=== PATIENT | female | born 1985 | race Caucasian/White ===

== ENCOUNTER → 2024-03-21 | Outpatient (CLI) | payer OTHER ==
[~2024-03-21] MED LIST: ALBIPROI INH; ALBU90OI; AMOX500 PO; BIRTH CONTROL; CODACE30; DICY20; DOCU100 PO; ESCI10; FLUSAL2505; FLUSAL2505 IH; HYDACE5 PO; IBUP800; IBUP800 PO; KETO75 PO; OXYACE5T PO; PENVK500 PO; PRED20 PO; PROM25 PO; RXOXYACE PO; TRIAOI
== END ==
LOC: LAB 14:20 → LAB SHORT 14:20
DX: N84.1 Polyp of cervix uteri (principal)
CPT/HCPCS: 88305

== ENCOUNTER → 2024-10-24 | Outpatient (CLI) | payer OTHER ==
[2024-10-24 14:17] LABS: BASOPHILS ABSOLUTE AUTO 0.06 K/mm3 (0.00-0.23); BASOPHILS PERCENT AUTO 1 % (0-2); EOSINOPHILS ABSOLUTE AUTO 0.22 K/mm3 (0.00-0.68); EOSINOPHILS PERCENT AUTO 3 % (0-6); Hematocrit 39.2 % (33.0-51.0); Hemoglobin 13.1 g/dL (11.5-16.0); IMMATURE GRAN ABSOLUTE AUTO 0.03 K/mm3 (0.00-0.10); IMMATURE GRAN PERCENT AUTO 0 % (0-1); LYMPHOCYTES ABSOLUTE AUTO 2.33 K/mm3 (0.84-5.20); LYMPHOCYTES PERCENT AUTO 26 % (21-46); MONOCYTES ABSOLUTE AUTO 0.54 K/mm3 (0.16-1.47); MONOCYTES PERCENT AUTO 6 % (4-13); Mean Corpuscular HGB 29.4 pg (26.0-34.0); Mean Corpuscular HGB Conc 33.4 g/dL (31.5-36.5); Mean Corpuscular Volume 88 fL (80-100); Mean Platelet Volume 10.6 fL (9.1-12.4); NEUTROPHILS ABSOLUTE AUTO 5.71 K/mm3 (1.96-9.15); NEUTROPHILS PERCENT AUTO 64 % (41-73); Platelet Count 264 K/mm3 (150-400); RDW Coefficient Variation 13.3 % (11.7-14.2); RDW Standard Deviation 42.3 fL (35.1-46.3); Red Blood Cell Count 4.45 M/mm3 (3.80-5.20); White Blood Cell Count 8.89 K/mm3 (4.00-11.30)
[2024-10-24 14:29] LABS: Albumin, Blood 3.2 g/dL (3.4-5.0); Albumin/Globulin Ratio 0.8 (0.8-1.8); Bilirubin, Total 0.4 mg/dL (0.1-1.0); Bun/Creatinine Ratio 16.9 (12.0-20.0); Creatinine, Blood 0.65 mg/dL (0.40-1.00); Globulin, Blood 3.9 g/dL (2.2-4.0); Potassium, Blood 3.9 mmol/L (3.5-5.5); Total Protein, Blood 7.1 g/dL (6.4-8.2)
== END ==
LOC: LAB 14:13 → LAB SHORT 14:13
PROVIDERS: Chiropractor
DX: R10.32 Left lower quadrant pain (principal)
CPT/HCPCS: 80053; 83690; 85025

== ENCOUNTER → 2024-10-27 | Outpatient (CLI) | payer OTHER ==
[2024-10-28 18:59] LABS: Adenovirus F 40/41 Not Detected (NOT DETECT); Astrovirus Not Detected (NOT DETECT); Campylobacter Sp Not Detected (NOT DETECT); Cryptosporidium Not Detected (NOT DETECT); Cyclospora Cayetanensis Not Detected (NOT DETECT); E. Coli O157 Not Detected (NOT DETECT); Entamoeba Histolytica Not Detected (NOT DETECT); Enteroaggregative E. coli-EAEC Not Detected (NOT DETECT); Enteropathogenic E. coli-EPEC Not Detected (NOT DETECT); Enterotoxigenic E. coli-ETEC Not Detected (NOT DETECT); Giardia Lamblia Not Detected (NOT DETECT); Norovirus GI/GII Not Detected (NOT DETECT); Plesiomonas Shigelloides Not Detected (NOT DETECT); Rotavirus A Not Detected (NOT DETECT); Salmonella Sp Not Detected (NOT DETECT); Sapovirus Not Detected (NOT DETECT); Shiga Toxin-prod E. coli-STEC Not Detected (NOT DETECT); Shigella/Enteroin E. coli-EIEC Not Detected (NOT DETECT); Vibrio Cholerae Not Detected (NOT DETECT); Vibrio Sp Not Detected (NOT DETECT); Yersinia Enterocolitica Not Detected (NOT DETECT)
== END | disposition home or self-care (01) ==
LOC: LAB 21:00 → LAB SHORT 21:00
PROVIDERS: Chiropractor
DX: R19.7 Diarrhea, unspecified (principal)
CPT/HCPCS: 87507

== ENCOUNTER → 2025-05-22 | Outpatient (CLI) | payer OTHER ==
[~2025-05-22] MED LIST changes: +Adipex-P37.5 M1 PO; +CELEBREX200 MG PO; +CEPH500 PO; +GABAPENTIN600 MG PO; +MONDOXYNE NL100 MG PO; +PROAIR RESPICL90 MCG INH; +TOPI50 PO
== END ==
LOC: LAB 19:01 → LAB SHORT 19:01
DX: T14.8XXA Other injury of unspecified body region, initial encounter (principal); L08.9 Local infection of the skin and subcutaneous tissue, unspecified
CPT/HCPCS: 87070; 87075; 87205

== ENCOUNTER 2025-05-27 21:58 | Inpatient (IN) | payer OTHER ==
[~2025-05-27] VITALS: Ht 170.2 cm; Wt 136.1 kg
[~2025-05-27 21:58] MED LIST changes: -Adipex-P37.5 M1 PO; -CELEBREX200 MG PO; -CEPH500 PO; -GABAPENTIN600 MG PO; -MONDOXYNE NL100 MG PO; -PROAIR RESPICL90 MCG INH; -TOPI50 PO
[2025-05-27] MEDS ORDERED: MONDOXYNE NL100 MG PO (22:07)
[2025-05-27] MEDS ORDERED: CEPH500 PO (22:07)
[2025-05-27] MEDS ORDERED: GABAPENTIN600 MG PO (22:08)
[2025-05-27] MEDS ORDERED: CELEBREX200 MG PO (22:08)
[2025-05-27] MEDS ORDERED: Adipex-P37.5 M1 PO (22:08)
[2025-05-27] MEDS ORDERED: ALBU90OI INH (22:09)
[2025-05-27] MEDS ORDERED: HYDROmorphone HCl/Pf 1MG SYR IV ONE (22:10)
[2025-05-27] MEDS ORDERED: Ondansetron HCl 2 MG / ML 2ML Vial IV ONE (22:20)
[2025-05-27 22:57] LABS: BASOPHILS ABSOLUTE AUTO 0.06 K/mm3 (0.00-0.23); BASOPHILS PERCENT AUTO 0 % (0-2); EOSINOPHILS ABSOLUTE AUTO 0.16 K/mm3 (0.00-0.68); EOSINOPHILS PERCENT AUTO 1 % (0-6); Hematocrit 38.8 % (33.0-51.0); Hemoglobin 13.5 g/dL (11.5-16.0); IMMATURE GRAN ABSOLUTE AUTO 0.08 K/mm3 (0.00-0.10); IMMATURE GRAN PERCENT AUTO 1 % (0-1); LYMPHOCYTES ABSOLUTE AUTO 2.50 K/mm3 (0.84-5.20); LYMPHOCYTES PERCENT AUTO 19 % (21-46); MONOCYTES ABSOLUTE AUTO 0.77 K/mm3 (0.16-1.47); MONOCYTES PERCENT AUTO 6 % (4-13); Mean Corpuscular HGB Conc 34.8 g/dL (31.5-36.5); Mean Corpuscular Volume 88 fL (80-100); NEUTROPHILS ABSOLUTE AUTO 9.83 K/mm3 (1.96-9.15); NEUTROPHILS PERCENT AUTO 73 % (41-73); NRBC ABSOLUTE 0.00 K/mm3 (0.00-0.02); NRBC Auto 0.0 /100 WBC (0.0-0.2); Platelet Count 222 K/mm3 (150-400); RDW Coefficient Variation 13.5 % (11.7-14.2); RDW Standard Deviation 43.7 fL (35.1-46.3)
[2025-05-27] MEDS ORDERED: CefTRIAXone Sodium 2,000 MG in NS 100 ML IV ONE (23:15)
[2025-05-27] MEDS ORDERED: NS 1,000 ML IV SCH (23:20)
[2025-05-28 00:03] LABS: Alanine Aminotransfer (ALT/SGP 23.0 U/L (12-78); Albumin, Blood 3.4 g/dL (3.4-5.0); Albumin/Globulin Ratio 0.9 (0.8-1.8); Anion Gap 11.0 mmol/L (3-11); Aspartate Aminotrans (AST/SGOT 15.0 U/L (12-37); Bilirubin, Total 0.4 mg/dL (0.1-1.0); Blood Urea Nitrogen 15.0 mg/dL (8-24); CO2, Blood 25.0 mmol/L (21-32); Calcium, Blood 9.8 mg/dL (8.5-10.1); Chloride, Blood 105.0 mmol/L (98-108); Creatinine, Blood 0.61 mg/dL (0.40-1.00); Globulin, Blood 3.8 g/dL (2.2-4.0); Glucose, Blood 92.0 mg/dL (70-99); Potassium, Blood 3.7 mmol/L (3.5-5.5); Sodium, Blood 137.0 mmol/L (136-145); Total Protein, Blood 7.2 g/dL (6.4-8.2)
[2025-05-28] MEDS ORDERED: FLU VACC TS2025-26(6MOS UP)/PF 45 MCG/0.5 ML SYRINGE IM ONE (02:15)
[2025-05-28] MEDS ORDERED: NS 1,000 ML IV SCH (02:15)
[2025-05-28 02:43] LABS: BASOPHILS ABSOLUTE AUTO 0.04 K/mm3 (0.00-0.23); BASOPHILS PERCENT AUTO 0 % (0-2); EOSINOPHILS ABSOLUTE AUTO 0.17 K/mm3 (0.00-0.68); EOSINOPHILS PERCENT AUTO 2 % (0-6); Hematocrit 34.9 % (33.0-51.0); Hemoglobin 11.5 g/dL (11.5-16.0); IMMATURE GRAN ABSOLUTE AUTO 0.02 K/mm3 (0.00-0.10); IMMATURE GRAN PERCENT AUTO 0 % (0-1); LYMPHOCYTES ABSOLUTE AUTO 2.72 K/mm3 (0.84-5.20); LYMPHOCYTES PERCENT AUTO 25 % (21-46); MONOCYTES ABSOLUTE AUTO 0.79 K/mm3 (0.16-1.47); MONOCYTES PERCENT AUTO 7 % (4-13); Mean Corpuscular HGB Conc 33.0 g/dL (31.5-36.5); Mean Corpuscular Volume 91 fL (80-100); NEUTROPHILS ABSOLUTE AUTO 6.95 K/mm3 (1.96-9.15); NEUTROPHILS PERCENT AUTO 65 % (41-73); NRBC ABSOLUTE 0.00 K/mm3 (0.00-0.02); NRBC Auto 0.0 /100 WBC (0.0-0.2); Platelet Count 214 K/mm3 (150-400); RDW Coefficient Variation 13.4 % (11.7-14.2); RDW Standard Deviation 44.2 fL (35.1-46.3)
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
[2025-05-28] MEDS ORDERED: Piperacillin/Tazobactam Sod 3.375 GM in NS 100 ML IV SCH (03:01)
[2025-05-28 03:03] LABS: Alanine Aminotransfer (ALT/SGP 18.0 U/L (12-78); Albumin, Blood 2.9 g/dL (3.4-5.0); Albumin/Globulin Ratio 0.9 (0.8-1.8); Anion Gap 9.0 mmol/L (3-11); Aspartate Aminotrans (AST/SGOT 9.0 U/L (12-37); Bilirubin, Total 0.3 mg/dL (0.1-1.0); Blood Urea Nitrogen 15.0 mg/dL (8-24); CO2, Blood 25.0 mmol/L (21-32); Calcium, Blood 8.8 mg/dL (8.5-10.1); Chloride, Blood 107.0 mmol/L (98-108); Creatinine, Blood 0.65 mg/dL (0.40-1.00); Globulin, Blood 3.3 g/dL (2.2-4.0); Glucose, Blood 102.0 mg/dL (70-99); Potassium, Blood 3.8 mmol/L (3.5-5.5); Sodium, Blood 137.0 mmol/L (136-145); Total Protein, Blood 6.2 g/dL (6.4-8.2)
[2025-05-28 03:13] VITALS: BP 136/71
[2025-05-28] MEDS ORDERED: Ondansetron HCl 2 MG / ML 2ML Vial IV ONE (03:45)
[2025-05-28] MEDS ORDERED: Ondansetron HCl 2 MG / ML 2ML Vial IV PRN (03:50)
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
[2025-05-28 08:17] VITALS: BP 117/86
[2025-05-28] MEDS ORDERED: TOPI50 PO (08:27)
[2025-05-28] MEDS ORDERED: Enoxaparin 40 MG/0.4 ML SYR SC SCH (09:00)
[2025-05-28] MEDS ORDERED: Lactobacil 2-S.Thermo-Bifido 1 1 Cap PO SCH (09:00)
[2025-05-28] MEDS ORDERED: HYDROcodone 5-APAP 325 TAB PO PRN (11:15)
[2025-05-28 12:34] VITALS: BP 123/69
--- NOTE | 2025-05-28 16:21 | NUR ---
SHIFT SUMMARY- PT WAS ADMITTED LAST NIGHT. MED REC WAS COMPLETED. CALLED DR SMITH AND THE PT HOME MEDICATIONS WERE REORDERED. PT HAS BEEN RESTING COMFORTABLY SINCE HOME MEDS WERE RESTARTED. PT IS IN BED, CALL LIGHT IN REACH NO S&S OF DISTRESS NOTED AT THIS TIME. PT HAS BEEN INDEPOEDNENT TO THE BATHROOM.
[2025-05-28] MEDS ORDERED: ACET500 PO (16:49)
[2025-05-28] MEDS ORDERED: LIDO700A20 TD (16:50)
[2025-05-28 18:28] VITALS: BP 135/93
[2025-05-28 19:34] VITALS: BP 137/68
[2025-05-28 23:56] VITALS: BP 132/60
[2025-05-29 04:56] VITALS: BP 133/71
[2025-05-29 07:15] VITALS: BP 118/71
--- NOTE | 2025-05-29 07:33 | NUR ---
SHIFT SUMMARY AT START OF SHIFT, PT SITTING UP IN BED. SCDS IN PLACE. PT COMPLAINED OF ACID REFLUX. HOSPITALIST ORDERED TUMS 1GM PO Q4 PRN. ADMINISTERED TO PT. UPON 2200 ROUNDING, PT SLEEPING SOUNDLY. PT REQUESTED REMOVING WOUND WRAP AROUND FOOT. PROVIDED PT WITH MEPILEX IN PLACE OF GAUZE WRAP. PT CONTENT WITH THIS OPTION. STATED IT FELT MUCH BETTER. WILL CONTINUE TO MONITOR. SHE HAS BEEN PLEASANT AND COOPERATIVE WITH CARE. MEDICATED FOR PAIN THIS AM. WILL CONTINUE TO MONITOR.
[2025-05-29 11:39] VITALS: BP 136/90
[2025-05-29] MEDS ORDERED: Ipratropium/Albuterol SulF 2.5-0.5MG/3 ML Amp INH PRN (12:25)
[2025-05-29] MEDS ORDERED: Albuterol HFA200 ACT/6.7 GM INH INH PRN (12:25)
[2025-05-29 19:32] VITALS: BP 124/73
--- NOTE | 2025-05-29 19:54 | NUR ---
SHIFT SUMMARY- PT ALERT, ORIENTED AND INDEPENDENT IN THE ROOM. CALL LIGHT IN REACH AND SHE CAN MAKE HER NEEDS KNOWN. FAMILY AT THE BEDSIDE. PT HAS HER HOME CPAP AND BREATHING Tx ORDERED FOR ASTHMA. SHE RECIEVED ONE Tx TODAY. BEDSIDE REPORT COMPLETED WITH NIGHT RN. FOOT WOUND GENERAL SERVICE OFFICER TEMPORARILY PER PT REQUEST. DRESSING SUPPLIES INJ THE ROOM NIGHT RN AWARE. NO S&S OF DISTRESS NOTED AT THE TIME OF BEDSIDE REPORT.
[2025-05-30 04:28] VITALS: BP 127/64
--- NOTE | 2025-05-30 07:00 | NUR ---
SHIFT SUMMARY AT START OF SHIFT, PT SITTING UP IN BED VISITING WITH HER FRIEND. SHE IS IN A PLEASANT MOOD. L FOOT WOUND CURRENTLY OPEN TO AIR. WILL REAPPLY XEROFORM AND MEPILEX DRESSING. APPROX 2009, PT UP IN SHOWER. HER FRIEND IS WITH HER FOR STANDBY ASSIST. PT BACK IN BED. TELE RECONNECTED AND WOUND CARE PERFORMED. PT MEDICATED FOR PAIN PER EMAR.
[2025-05-30 07:43] VITALS: BP 123/70
[2025-05-30] MEDS ORDERED: Trimethoprim/Sulfamethoxazole DS Tab PO SCH (12:00)
[2025-05-30] MEDS ORDERED: HYDROCODONE-AC1 EA19 PO (12:22)
[2025-05-30] MEDS ORDERED: NICO21TP TOP (12:23)
[2025-05-30] MEDS ORDERED: SULFAMETHOXAZO1 EAC1 PO (12:24)
[2025-05-30] MEDS ORDERED: VISBIOME 112.51 EACH PO (12:24)
--- NOTE | 2025-05-30 14:36 | NUR ---
DISCHARGE NOTE- PT WAS GIVEN VERBAL AND WRITTEN DISCHARGE INSTRUCTIONS AND ACKNOWLEDGED UNDERSTANDING OF THEM. IV AND TELE DC'D PRIOR TO DISCHARGE, NO S&S OF DISTRESS NOTED AT THE TIME OF DISCHARGE. PT WAS ESCORTED OUT VIA WC BY THE REGIONAL FACILITIES SPECIALIST.
== END 2025-05-30 14:40 | disposition home or self-care (01) | DRG 872 ==
LOC: ER 21:58 → MEDS 05-28 00:14 → ERHOLD 05-28 00:14 → MEDS 05-28 02:20 → ENPENDDIS 05-30 11:22 → MEDS 05-30 14:40
PROVIDERS: Student in an Organized Health Care Education/Training Program; ADMIT Internal Medicine
DX: A41.9 Sepsis, unspecified organism (principal); E87.21 Acute metabolic acidosis; L03.116 Cellulitis of left lower limb; M79.7 Fibromyalgia; J45.909 Unspecified asthma, uncomplicated; F17.210 Nicotine dependence, cigarettes, uncomplicated; S91.102A Unspecified open wound of left great toe without damage to nail, initial encounter; S91.105A Unspecified open wound of left lesser toe(s) without damage to nail, initial encounter; S80.212A Abrasion, left knee, initial encounter; V48.0XXA Car driver injured in noncollision transport accident in nontraffic accident, initial encounter; Z79.1 Long term (current) use of non-steroidal anti-inflammatories (NSAID)
CPT/HCPCS: 36415; 80053; 83605; 85025; 87040; 94640; 94664; 94760; 94762; 96365; 96375; 99284-25; A9270; J0696; J1171; J1650; J2405; J2543; J7030